=== PATIENT | male | born 1975 | race Caucasian/White ===

== ENCOUNTER 2016-06-06 09:05 | Outpatient (CLI) | payer OTHER ==
[2016-06-06 09:47] LABS: BASOPHILS % 0.7 (0.0-1.5); EOSINOPHILS % 4.3 % (0.0-6.8); MEAN CORPUSCULAR HEMOGLOBIN 32.9 pg (28.0-34.0); MEAN CORPUSCULAR VOLUME 93.2 fl (80.0-100.0); MONOCYTES % 5.6 % (0.0-11.0); NEUTROPHILS # 2.3 # k/uL (1.4-7.7)
[2016-06-06 09:54] LABS: eGFR (African) > 60; eGFR (Non-African) 59
== END 2016-06-06 09:06 ==
LOC: LAB 09:05
PROVIDERS: ATTEND Physician Assistant
DX: R53.83 Other fatigue (principal)
CPT/HCPCS: 36415; 80053; 80061; 82306; 82607; 85025

== ENCOUNTER → 2017-10-05 | Outpatient (CLI) | payer OTHER ==
[2017-10-05 17:11] LABS: TOTAL PROTEIN 7.4 g/dL (6.0-8.5)
== END ==
LOC: LAB 09:13
PROVIDERS: ATTEND Physician Assistant
DX: Z13.6 Encounter for screening for cardiovascular disorders (principal); I10 Essential (primary) hypertension
CPT/HCPCS: 80053; 80061